=== PATIENT | male | born 1945 | race Caucasian/White ===

== ENCOUNTER → 2017-09-08 | Outpatient (CLI) | payer MEDICARE ==
[~2017-09-08] MED LIST: AMLO10TA2 PO; IRBE1TAB13 PO; SIMV20TA3 PO
[2017-09-08 09:51] LABS: MICROSCOPIC NOT IND
[2017-09-08 10:04] LABS: CULTURE INDICATED? NO
== END | disposition home or self-care (01) ==
LOC: STAR 07:54
PROVIDERS: ATTEND Orthopaedic Surgery
DX: Z01.818 Encounter for other preprocedural examination (principal); I49.1 Atrial premature depolarization; M17.12 Unilateral primary osteoarthritis, left knee; Z11.4 Encounter for screening for human immunodeficiency virus [HIV]
CPT/HCPCS: 36415; 81003; 86703; 87081; 87899; 93005; G0435

== ENCOUNTER 2017-09-14 07:35 | Inpatient (IN) | payer MEDICARE ==
[~2017-09-14] VITALS: Ht 172.7 cm; Wt 89.4 kg
[2017-09-14] MEDS ORDERED: MIDAZOLAM 1 MG/ML, 2ML ONE (08:05)
[2017-09-14] MEDS ORDERED: FENTANYL PF 250 MCG/5ML ONE ×2 (08:05→10:40)
[2017-09-14] MEDS ORDERED: LACTATED RINGERS 1,000 ML IV SCH (08:07)
[2017-09-14] MEDS ORDERED: PROPOFOL 10 MG/ML, 20ML ONE (08:07)
[2017-09-14] MEDS ORDERED: ROCURONIUM 10 MG/ML,10ML ONE (08:08)
[2017-09-14] MEDS ORDERED: GLYCOPYRROLATE 0.4 MG/2 ML, 2ML ONE (08:08)
[2017-09-14] MEDS ORDERED: NEOSTIGMINE 1 MG/ML, 10ML ONE (08:08)
[2017-09-14] MEDS ORDERED: CEFAZOLIN 1,000 MG ONE ×2 (08:09)
[2017-09-14] MEDS ORDERED: SODIUM CHLORIDE 0.9% PF 10ML ONE (08:09)
[2017-09-14] MEDS ORDERED: ROPIvacaine/PF 0.2%, 20 ML ONE ×2 (08:11→08:50)
[2017-09-14 08:13] VITALS: BP 159/99
[2017-09-14] MEDS ORDERED: VANCOMYCIN PMX 1GM/200ML 200 ML IV ONE (08:29)
[2017-09-14] MEDS ORDERED: BACITRACIN 50,000 UNIT ONE (08:50)
[2017-09-14] MEDS ORDERED: morphine SULFATE/PF 1 MG/ML, 10ML ONE (08:50)
[2017-09-14] MEDS ORDERED: SODIUM CHLORIDE 0.9% 100 ML ONE (08:50)
[2017-09-14] MEDS ORDERED: EPINEPHRINE 1 MG/ML, 1ML ONE (08:50)
[2017-09-14] MEDS ORDERED: TRANEXAMIC ACID 100 MG/ML, 10ML ONE (08:50)
[2017-09-14] MEDS ORDERED: KETOROLAC 60 MG/2 ML ONE (08:50)
[2017-09-14] MEDS ORDERED: PHENYLEPHRINE 10 MG/ML ONE (09:57)
[2017-09-14] MEDS ORDERED: HYDROmorphone 1 MG/ML, 1ML IV PRN (10:00)
[2017-09-14] MEDS ORDERED: FENTANYL PF 100 MCG/2ML IV PRN (10:00)
[2017-09-14] MEDS ORDERED: LABETALOL 5MG/ML, 20ML IV PRN (10:00)
[2017-09-14] MEDS ORDERED: OXYcodone 5 MG/5 ML ORAL.SOL UDC PO PRN (10:00)
[2017-09-14] MEDS ORDERED: ONDANSETRON 2MG/ML, 2ML IVPush PRN (10:00)
[2017-09-14] MEDS ORDERED: hydrALAzine 20 MG/ML, 1ML IV PRN (10:00)
[2017-09-14] MEDS ORDERED: MEPERIDINE/PF 25MG/0.5ML IVPush PRN (10:00)
[2017-09-14] MEDS ORDERED: ACETAMINOPHEN 325 MG TABLET PO PRN ×2 (10:00→10:30)
[2017-09-14] MEDS ORDERED: PROMETHAZINE 12.5 MG SUPP PR PRN (10:00)
[2017-09-14] MEDS ORDERED: DIPHENHYDRAMINE 50 MG CAPSULE PO PRN (10:30)
[2017-09-14] MEDS ORDERED: morphine SULFATE 10 MG/ML, 1ML IVPush PRN (10:30)
[2017-09-14] MEDS ORDERED: LORazepam 2 MG/ML, 1ML IVPush PRN (10:30)
[2017-09-14] MEDS ORDERED: ONDANSETRON 2MG/ML, 2ML ONE (12:21)
[2017-09-14] MEDS ORDERED: PROMETHAZINE 25 MG/ML, 1ML ONE (12:50)
[2017-09-14] MEDS ORDERED: PROMETHAZINE 25 MG/ML, 1ML IV PRN (13:00)
[2017-09-14] MEDS ORDERED: TRANEXAMIC ACID 1,000 MG in SODIUM CHLORIDE 0.9% 100 ML IV ONE ×2 (14:00→15:30)
[2017-09-14] MEDS: D5%-0.45% NACL 1,000 ML IV SCH ×2 (14:26→23:05)
[2017-09-14] MEDS ORDERED: CEFAZOLIN PMX 1GM/50ML 50 ML IVPB SCH (16:00)
[2017-09-14] MEDS: ONDANSETRON 2MG/ML, 2ML IVPush PRN ×2 (16:05→21:59)
[2017-09-14] MEDS: CEFAZOLIN PMX 1GM/50ML 50 ML IVPB SCH (18:09)
[2017-09-14] MEDS: OXYcodone/APAP 7.5/325MG TABLET PO PRN (19:54)
[2017-09-14] MEDS ORDERED: VANCOMYCIN PMX 1GM/200ML 200 ML IVPB ONE (20:00)
[2017-09-14 20:06] VITALS: BP 143/85
[2017-09-14] MEDS: DOCUSATE 100 MG CAPSULE PO SCH ×2 (20:22→21:55)
[2017-09-14] MEDS ORDERED: ZOLPIDEM 5MG TABLET PO PRN (21:00)
[2017-09-14] MEDS ORDERED: SIMVASTATIN 20 MG TABLET PO SCH (21:00)
[2017-09-14 23:38] VITALS: BP 132/62
[2017-09-15] MEDS: D5%-0.45% NACL 1,000 ML IV SCH ×3 (01:00→09:08)
[2017-09-15] MEDS: CEFAZOLIN PMX 1GM/50ML 50 ML IVPB SCH ×2 (02:05→11:17)
[2017-09-15] MEDS: ONDANSETRON 2MG/ML, 2ML IVPush PRN ×3 (02:05→12:43)
[2017-09-15] MEDS: OXYcodone/APAP 7.5/325MG TABLET PO PRN ×2 (02:05→03:20)
[2017-09-15 03:37] VITALS: BP 135/76
[2017-09-15 06:44] VITALS: BP 126/71
[2017-09-15] MEDS: DOCUSATE 100 MG CAPSULE PO SCH (08:15)
[2017-09-15] MEDS ORDERED: IRBESARTAN 300 MG TABLET PO SCH (09:00)
[2017-09-15] MEDS ORDERED: HYDROCHLOROTHIAZIDE 12.5 MG CAPSULE PO SCH (09:00)
[2017-09-15] MEDS ORDERED: AMLODIPINE 5 MG TABLET PO SCH (09:00)
[2017-09-15] MEDS ORDERED: VANCOMYCIN PMX 1GM/200ML 200 ML IVPB ONE (09:30)
[2017-09-15 12:53] VITALS: BP 144/79
[2017-09-15] MEDS ORDERED: ASPIRIN 325 MG TABLET EC PO SCH (17:00)
[2017-09-15] MEDS ORDERED: DOCUSATE 100 MG CAPSULE PO SCH (21:00)
== END 2017-09-15 14:30 | disposition home or self-care (01) | DRG 470 ==
LOC: OUT 07:35 → EDSTATUS 09:30 → ORIP 10:03 → 4NOR 13:27 → DCLOUNGE 09-15 14:23
PROVIDERS: ADMIT Orthopaedic Surgery; ATTEND Orthopaedic Surgery
PROC: 0SRD0J9 Replacement of Left Knee Joint with Synthetic Substitute, Cemented, Open Approach (ICD-10-PCS; principal; 2017-09-14 09:30)
DX: M17.12 Unilateral primary osteoarthritis, left knee (principal); I10 Essential (primary) hypertension
CPT/HCPCS: 36415; 85018; C1713; J0171; J0690; J1885; J2250; J2274; J2405; J2550; J2704; J2710; J2795; J3010; J3370; C1776; J2370; J7120